=== PATIENT | male | born 1980 | race Caucasian/White ===

== ENCOUNTER 2023-04-10 10:53 | Emergency (ER) | payer MEDICAID, MEDICARE ==
[~2023-04-10] VITALS: Ht 175.3 cm; Wt 229.6 kg
[2023-04-10 11:36] LABS: BASOPHILS % (AUTO) 0.2 % (0-1); EOSINOPHILS # (AUTO) 0.5 X10'3 (0-0.9); EOSINOPHILS % (AUTO) 4.2 % (0-6); LYMPHOCYTES # (AUTO) 1.9 X10'3 (1.1-4.8); LYMPHOCYTES % (AUTO) 17.4 % (21-51); MEAN PLATELET VOLUME 6.7 FL (7.4-10.4); MONOCYTES # (AUTO) 0.7 X10'3 (0-0.9); NEUTROPHILS # (AUTO) 7.9 X10'3 (1.8-7.7); NEUTROPHILS % (AUTO) 72.2 % (42-75); PLATELET COUNT 353 X10'3 (140-440)
[2023-04-10 11:54] LABS: HEMATOCRIT 38.8 % (42.0-52.0); HEMOGLOBIN 12.4 g/dl (14.0-17.9); MEAN CORPUSCULAR HEMOGLOBIN 22.3 PG (27.0-31.0); MEAN CORPUSCULAR HGB CONC 31.9 g/dL (33.0-36.5); MEAN CORPUSCULAR VOLUME 69.9 FL (78-98); RED BLOOD COUNT 5.55 X10'6 (4.70-6.10); RED CELL DISTRIBUTION WIDTH 18.4 % (11.5-14.5)
[2023-04-10 11:56] LABS: ALANINE AMINOTRANSFERASE 27 U/L (12-78); ALBUMIN 3.3 G/DL (3.4-5.0); ALBUMIN/GLOBULIN RATIO 0.6 (1.1-1.5); ALKALINE PHOSPHATASE 109 IU/L (46-116); ANION GAP 7 (8-16); ASPARTATE AMINO TRANSFERASE 12 U/L (10-37); BILIRUBIN,TOTAL 0.4 MG/DL (0.1-1.0); BLOOD UREA NITROGEN 17 MG/DL (7-18); BUN/CREATININE RATIO 20.2 (10.0-20.0); CALCIUM 8.9 MG/DL (8.5-10.1); CHLORIDE 98 MMOL/L (99-107); CREATININE 0.84 MG/DL (0.60-1.10); GLUCOSE 202 MG/DL (70-104); POTASSIUM 4.1 MMOL/L (3.5-5.1); SODIUM 138 MMOL/L (135-145); TOTAL CARBON DIOXIDE 32.9 MMOL/L (24-32); TOTAL PROTEIN 9.1 G/DL (6.4-8.2); eCRCL 115 ML/MIN; eGFR > 90 ML/MIN
[2023-04-10 12:16] LABS: PRO BRAIN NATRIURETIC PEPTIDE 38 PG/ML (0-125)
[2023-04-10 13:23] LABS: LIPASE 39 U/L (16-77)
[2023-04-10 13:25] VITALS: BP 154/79; PULSE 84; RESP 20; TEMP 97.5; O2SAT 100
[2023-04-10 13:28] LABS: ANISOCYTOSIS 2+; ELLIPTOCYTES FEW; MICROCYTOSIS 1+; PLATELET ESTIMATE NORMAL; TEAR DROP CELLS FEW
[2023-04-10 13:29] LABS: POLYCHROMASIA FEW
[2023-04-10] MEDS ORDERED: SULF1TAB49 PO (13:52)
== END 2023-04-10 14:13 | disposition home or self-care (01) ==
LOC: ER 10:54
DX: L03.115 Cellulitis of right lower limb (principal); I87.8 Other specified disorders of veins; Z20.822 Contact with and (suspected) exposure to COVID-19; R07.89 Other chest pain; I11.0 Hypertensive heart disease with heart failure; I50.9 Heart failure, unspecified; G47.30 Sleep apnea, unspecified; E11.9 Type 2 diabetes mellitus without complications; F32.9 Major depressive disorder, single episode, unspecified; Z88.0 Allergy status to penicillin; Z79.899 Other long term (current) drug therapy
CPT/HCPCS: 36415; 71045; 80053; 82948; 83690; 83880; 84484; 85008; 85025; 87502; 87503; 87811; 93005; 99285